=== PATIENT | female | born 2000 | race Caucasian/White ===

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

== ENCOUNTER → 2018-05-14 | Outpatient (CLI) | payer MEDICAID ==
[~2018-05-14] MED LIST changes: -IBUP200C PO; +IBUP200C5 PO; -LAMO150T PO; +LAMO150T2 PO
== END | disposition home or self-care (01) ==
LOC: CARD 09:39
PROVIDERS: ATTEND Registered Nurse
DX: G40.909 Epilepsy, unspecified, not intractable, without status epilepticus (principal)
CPT/HCPCS: 95819

== ENCOUNTER 2019-01-11 19:34 | Emergency (ER) | payer MEDICAID ==
[~2019-01-11] VITALS: Ht 152.4 cm; Wt 66.0 kg
[~2019-01-11 19:34] MED LIST changes: +IBUP-1623 PO; -IBUP200C5 PO
[2019-01-11] MEDS ORDERED: MIRT30TA4 PO (19:48)
[2019-01-11] MEDS ORDERED: METH500T97 PO (19:48)
[2019-01-11 20:22] LABS: HCG UR SG 1.014 (1.003-1.030)
[2019-01-11 20:23] LABS: ALANINE AMINOTRANSFERASE 16 U/L (12-78); ALBUMIN 4.4 g/dL (3.4-5.0); ANION GAP 7 mmol/L (5-15); CALCIUM 8.8 mg/dL (8.5-10.1); CHLORIDE 113 mmol/L (98-107)
[2019-01-11 20:24] LABS: SALICYLATE LEVEL < 1.7 mg/dL (2.8-20.0)
[2019-01-11 20:26] LABS: ALKALINE PHOSPHATASE 67 U/L (45-117); BILIRUBIN,TOTAL 0.3 mg/dL (0.2-1.0); CREATININE 0.79 mg/dL (0.55-1.02); TOTAL PROTEIN 7.6 g/dL (6.4-8.2)
[2019-01-11 20:27] LABS: ACETAMINOPHEN < 2 mcg/mL (10-30)
--- NOTE | 2019-01-11 20:29 | NUR ---
SALONI RN: INSURANCE VERIFIED BY REG. I INITIATED.
[2019-01-11 20:36] LABS: MEAN CORPUSCULAR HGB CONC 32.5 g/dL (32.4-35.8); MEAN CORPUSCULAR VOLUME 70.9 fL (80-100); PLATELET COUNT 244 x10^3/uL (130-400); RED BLOOD COUNT 4.59 x10^6/uL (3.82-5.3)
--- NOTE | 2019-01-11 20:36 | NUR ---
TP RN: [facility] CALLED. [facility] TO COME TO EVAL PT IN APPROX ONE HOUR.
[2019-01-11 20:41] LABS: AMPHETAMINE SCREEN, URINE Negative (Negative); BARBITURATE SCREEN, URINE Negative (Negative); BENZODIAZEPINE SCREEN, URINE Negative (Negative); CANNABINOID SCREEN, URINE Positive (Negative); COCAINE SCREEN, URINE Negative (Negative); METHADONE SCREEN, URINE Negative (Negative); OPIATE SCREEN, URINE Negative (Negative)
[2019-01-11 20:46] LABS: BASOPHILS # (AUTO) 0.04 x10^3/uL (0-0.3); BASOPHILS % (AUTO) 1 % (0-1); EOSINOPHILS # (AUTO) 0.01 x10^3/uL (0-0.8); EOSINOPHILS % (AUTO) 0 % (1-7); LYMPHOCYTES # (AUTO) 1.25 x10^3/uL (1-6.1); LYMPHOCYTES % (AUTO) 16 % (22-44); MD SCAN; MONOCYTES # (AUTO) 0.29 x10^3/uL (0-1.4); MONOCYTES % (AUTO) 4 % (2-9); NEUTROPHILS # (AUTO) 6.05 x10^3/uL (1.8-8.0); NEUTROPHILS % (AUTO) 79 % (42-75)
--- NOTE | 2019-01-11 20:50 | NUR ---
TP RN: [facility] AT BEDSIDE
[2019-01-11] MEDS ORDERED: IBUPROFEN 200 MG TABLET PO PRN (22:00)
[2019-01-11] MEDS ORDERED: BISACODYL 10 MG SUPP PR PRN (22:00)
[2019-01-11] MEDS ORDERED: POLYETHYLENE GLYCOL 17 GM PACKET PO PRN (22:00)
[2019-01-11] MEDS ORDERED: ONDANSETRON ODT 4 MG PO PRN (22:00)
--- NOTE | 2019-01-11 22:29 | NUR ---
TP RN: PACKET FAXED TO [facility] PER [facility]. FAX CONFIRMATION RECEIVED.
--- NOTE | 2019-01-11 22:32 | NUR ---
POC DISCUSSED. SITTER REMAINS IN PLACE. AWAITING [facility] AT THIS TIME.
--- NOTE | 2019-01-11 23:07 | NUR ---
TP RN: PT REFUSED BY [facility], D/T "MORE CIRCUMSTANTIAL THEN PSYCH". PACKET FAXED TO [facility] AND [facility]. [facility] 'BUSY', WILL CONTINUE TO ATTEMPT FAX.
[2019-01-11] MEDS ORDERED: MIRTAZAPINE 15 MG TABLET ONE (23:21)
[2019-01-11] MEDS ORDERED: IBUPROFEN 200 MG TABLET ONE (23:21)
[2019-01-11] MEDS ORDERED: ACETAMINOPHEN 325 MG TABLET ONE (23:21)
--- NOTE | 2019-01-11 23:39 | NUR ---
PT INFORMED SHE WAS REFUSED BY [facility]. PT VERY UPSET BY THIS. PT STATES "I'D RATHER GO TO [facility] THAN [place]". POC DISCUSSED. PT WAS OFFERED ORDERED MEDS WHICH SHE REFUSED. PT NOW SITTING IN THE CORNER OF THE ROOM WITH HER HEAD BETWEEN HER KNEES.
[2019-01-11] MEDS ORDERED: ZIPRASIDONE 20 MG INJ IM ONE (23:52)
--- NOTE | 2019-01-12 00:01 | NUR ---
PT IN ROOM BANGING HEAD ON THE MIRANDA. PT NOT RECEPTIVE TO [facility]URES. [facility] WAS CALLED. VERBAL ORDER FOR 10MG IM GEODON GIVEN. ORDER READ BACK TO VIV[facility] AND CONFIRMED. ORDER PLACED.
--- NOTE | 2019-01-12 00:03 | NUR ---
PT MEDICATED FOR CONTINUED HEAD BANGING. POC DISCUSSED. SITTER IN PLACE.
[2019-01-12] MEDS ORDERED: ZIPRASIDONE 20 MG INJ IM ONE (00:30)
[2019-01-12] MEDS: MIRTAZAPINE 15 MG TABLET PO SCH ×2 (00:40→21:38)
[2019-01-12] MEDS: LAMOTRIGINE 100 MG TABLET PO SCH ×3 (00:41→21:37)
[2019-01-12] MEDS: IBUPROFEN 200 MG TABLET PO PRN ×2 (00:45→18:57)
[2019-01-12] MEDS: ACETAMINOPHEN 325 MG TABLET PO PRN ×2 (00:46→17:56)
--- NOTE | 2019-01-12 00:49 | NUR ---
PT NOW MORE RECEPTIVE TO POC. PT AGREEABLE TO ORDERED PO MEDS. PT MEDICATED PER DEC. PT NOW RESTING QUIETLY. LIGHTS DIMMED FOR COMFORT. SITTER IN PLACE.
--- NOTE | 2019-01-12 03:13 | NUR ---
PT AWOKEN FOR VITALS. POC DISCUSSED. PT DENIES FURTHER NEEDS AT THIS TIME. SITTER IN PLACE.
--- NOTE | 2019-01-12 03:50 | NUR ---
tp: late entry. [facility] fax sent aprox [phone] and fax was "complete"
--- NOTE | 2019-01-12 04:15 | NUR ---
PT SLEEPING. RR 14 AND UNLABORED. SITTER IN PLACE.
--- NOTE | 2019-01-12 06:31 | NUR ---
PATIENT SLEEPING. VITAL SIGNS TAKEN. NO COMPLAINTS OF PAIN
[2019-01-12] MEDS: FERROUS GLUCONATE 324 MG TABLET PO SCH ×2 (08:00→22:08)
--- NOTE | 2019-01-12 08:26 | NUR ---
PT GIVEN BREAKFAST, SLEEPING ON AND OFF, ROOM SECURED, SITTER AT DOOR. PT DENIES ANY NEEDS A THIS TIME
[2019-01-12] MEDS: SENNA/DOCUSATE TABLET PO SCH (09:00)
--- NOTE | 2019-01-12 09:08 | NUR ---
ASSUMED CARE WITH REPORT RECEIVED FROM TEVIN. PT SLEEPING
[2019-01-12] MEDS ORDERED: SENNA/DOCUSATE TABLET ONE (09:56)
[2019-01-12] MEDS ORDERED: METHOCARBAMOL 500 MG TABLET PO PRN (10:00)
--- NOTE | 2019-01-12 10:21 | NUR ---
PT WATCHING TV. MORNING MEDS GIVEN. PT TEARY WHEN TALKING ABOUT NOT BEING PLACED AT [facility]. RN TO CALL MOTHER AT PT'S REQUEST
--- NOTE | 2019-01-12 15:07 | NUR ---
AWAKE, LYING IN BED WATCHING TV
[2019-01-12] MEDS ORDERED: ACETAMINOPHEN 325 MG TABLET ONE (17:54)
--- NOTE | 2019-01-12 18:00 | NUR ---
MEDICATED FOR ALL-OVER BODY PAIN. PROVIDED DINNER TRAY
[2019-01-12] MEDS ORDERED: IBUPROFEN 200 MG TABLET ONE (18:55)
--- NOTE | 2019-01-12 19:14 | NUR ---
PT UP TO BATHROOM AND PROVIDED WIPES AND NEW PAIR OF UNDERWEAR AND GOWN. LORRAINE TAKEN OUT WITH HOSPITAL BED BROUGHT IN. PT STATES SHE HAS HIP AND NECK PAIN. ADDITIONALLY MEDCIATED FOR SAME
[2019-01-12] MEDS ORDERED: MIRTAZAPINE 15 MG TABLET ONE ×2 (19:21→21:08)
--- NOTE | 2019-01-12 20:02 | NUR ---
PT READING MAGAZINES. PROVIDED MUSCLE RELAXER
--- NOTE | 2019-01-12 21:01 | NUR ---
RECEIVED BS REPORT FROM JOEL RAZA TO ASSUME PT. CARE AT THIS TIME. ROOM IS SECURED. SITTER IN BRAGG.
--- NOTE | 2019-01-12 21:41 | NUR ---
PT. MEDICATED PER DEC. PT. IN AGREEMENT WITH TAKING ORDERED IRON PILL NOW; SHE HAD BEEN REFUSING THIS EARLIER PER HER "I DIDN'T KNOW WHY I WAS SUPPOSED TO TAKE IT". EDUCATION PROVIDED TO PT. ABOUT THIS AND NOW AGREEABLE. AMAN. ROOM IS SECURED AND SITTER IN BRAGG. WILL REQUEST JOSE FROM PHARMACY.
[2019-01-12] MEDS ORDERED: POLYETHYLENE GLYCOL 17 GM PACKET ONE (22:03)
--- NOTE | 2019-01-12 22:09 | NUR ---
MED ARRIVED FROM PHARMACY; PT. ALSO C/O FEELING CONSTIPATED. MIRILAX ADMIN FOR THIS. PT. DENIES OTHER NEEDS AT THIS TIME. WILL CONTINUE TO MONITOR.
--- NOTE | 2019-01-12 22:35 | NUR ---
PT. PROVIDED WITH PAD AND UNDERWEAR PER REQUEST.
--- NOTE | 2019-01-12 23:34 | NUR ---
PT. RESTING ON HOSPITAL BED WITH EYES CLOSED. EVEN CHEST RISE/FALL VISIBLE. NADN.
--- NOTE | 2019-01-13 00:43 | NUR ---
PT BEDSIDE REPORT FROM JENNIFER MALDONADO. THIS RN TO ASSUME CARE OF PT. RR EVEN AND UNLABORED. ROLLER DOORS IN PLACED. SITTER IN HALLWAY.
--- NOTE | 2019-01-13 01:41 | NUR ---
ROLLER DOORS IN PLACE. SITTER IN HALLWAY.
--- NOTE | 2019-01-13 03:21 | NUR ---
ROLLER DOORS IN PLACE. SITTER IN HALLWAY.
--- NOTE | 2019-01-13 04:30 | NUR ---
ROLLER DOORS IN PLACE. SITTER IN HALLWAY.
--- NOTE | 2019-01-13 05:26 | NUR ---
ROLLER DOORS IN PLACE. SITTER IN HALLWAY.
--- NOTE | 2019-01-13 07:17 | NUR ---
LATE NOTE ENTRY FOR 0645: Recieved bedside report from JOEL Gustafson. All questions answered. NADN. Pt resting on gurney asleep. Pt has even chest rise and fall. No needs expressed. Sitter near door way in direct line of sight for observation.
[2019-01-13] MEDS ORDERED: SENNA/DOCUSATE TABLET ONE (08:11)
--- NOTE | 2019-01-13 08:15 | NUR ---
Provided report to JOEL Rehman from [facility]. All questions answered. Waiting for Norman Cueva MD to accept.
--- NOTE | 2019-01-13 08:35 | NUR ---
TASK RN: PT RESTING IN BED. SITTER REMAINS AT BEDSIDE. ROOM REMAINS SECURE.
[2019-01-13 08:59] VITALS: BP 107/64
[2019-01-13] MEDS: LAMOTRIGINE 100 MG TABLET PO SCH (09:01)
[2019-01-13] MEDS: SENNA/DOCUSATE TABLET PO SCH (09:01)
[2019-01-13] MEDS: FERROUS GLUCONATE 324 MG TABLET PO SCH (09:01)
--- NOTE | 2019-01-13 09:15 | NUR ---
Pt provided breakfast tray and additional milk. Pt ambulated with steady gait and balance to telephone with sitter to call her mom. Pt back to room. Pt provided morning medications. Pt states, "I want to hurt myself. I would cut my throat."
--- NOTE | 2019-01-13 09:15 | NUR ---
Spoke to JOEL Rehman at [facility]. [facility] is accepting pt.
--- NOTE | 2019-01-13 10:54 | NUR ---
SPOKE WITH MEENAKSHI AT [facility]
--- NOTE | 2019-01-13 11:09 | NUR ---
LATE NOTE ENTRY FOR 1000: Pt asleep on hospital bed. NADN. Waiting for ETA for EMS to transfer pt to [place]. No needs requested. Sitter near doorway in direct line of sight for observation.
--- NOTE | 2019-01-13 11:12 | NUR ---
[facility] NOTIFIED OF APPROX 1230 ETA
--- NOTE | 2019-01-13 11:12 | NUR ---
Pt asleep on hospital bed. NADN. ED SI meal tray ordered for lunch. Sitter near doorway in direct line of sight for observation. No needs requested.
[2019-01-13] MEDS ORDERED: IBUPROFEN 200 MG TABLET ONE (11:36)
[2019-01-13] MEDS: IBUPROFEN 200 MG TABLET PO PRN (11:38)
--- NOTE | 2019-01-13 11:38 | NUR ---
Pt provided medication per [facility] for c/o 08/06 "pounding" headache.
--- NOTE | 2019-01-13 12:14 | NUR ---
Pt provided lunch tray.
--- NOTE | 2019-01-13 12:19 | NUR ---
Pt ambulates with steady gait and balance and left with EMS for transport to [place]. Pt left with all personal belongings. NADN. No defecits observed.
== END 2019-01-13 12:19 ==
LOC: ED 20:23 → EDIP 22:14 → UNDOADMIN 22:14 → ED 01-13 12:19
DX: R45.851 Suicidal ideations (principal); F32.9 Major depressive disorder, single episode, unspecified; F41.9 Anxiety disorder, unspecified; F43.10 Post-traumatic stress disorder, unspecified; G40.909 Epilepsy, unspecified, not intractable, without status epilepticus; D50.9 Iron deficiency anemia, unspecified; F12.10 Cannabis abuse, uncomplicated
CPT/HCPCS: 36415; 80053; 80307; 80329; 81025; 82728; 83540; 83550; 85025; 96372; 99285; J3486; G0480